=== PATIENT | male | born 1945 | race Caucasian/White ===

== ENCOUNTER 2017-02-13 10:52 | Emergency (ER) | payer MEDICARE, OTHER ==
[~2017-02-13] VITALS: Ht 180.3 cm; Wt 111.4 kg
[~2017-02-13 10:52] MED LIST: ASPIR-LOW81 MG PO; CETIRIZINE HCL10 MG PO; CHOLESTEROL MED PO; LIPITOR20 MG PO; LIPITOR40 MG PO; PRILOSEC20 MG PO
== END 2017-02-13 12:44 | disposition home or self-care (01) ==
LOC: ED 10:52
DX: R04.0 Epistaxis (principal); E78.5 Hyperlipidemia, unspecified; I10 Essential (primary) hypertension; Z86.73 Personal history of transient ischemic attack (TIA), and cerebral infarction without residual deficits; Z87.891 Personal history of nicotine dependence; Z88.5 Allergy status to narcotic agent; Z79.82 Long term (current) use of aspirin; Z79.899 Other long term (current) drug therapy
CPT/HCPCS: 85025; 85610; 99283